=== PATIENT | female | born 1975 | race Hispanic/Latino ===

== ENCOUNTER 2020-06-01 08:56 | Inpatient (IN) | payer SELFPAY ==
[~2020-06-01] VITALS: Ht 157.5 cm; Wt 104.3 kg
[2020-06-01] MEDS ORDERED: SODIUM CHLORIDE 0.9% 1000ML 1,000 ML IV STA (09:17)
[2020-06-01 09:29] LABS: BASOPHILS # (AUTO) 0.1 (0.0-0.1); BASOPHILS % 0.2 % (0.0-1.0); HEMATOCRIT 39.6 % (34.2-44.1); HEMOGLOBIN 13.3 g/dL (12.0-16.0); LYMPHOCYTES # (AUTO) 1.8 (1.0-3.2); LYMPHOCYTES % 8.7 % (18.0-39.1); MEAN CORPUSCULAR HEMOGLOBIN 29.4 pg (28-32); MEAN CORPUSCULAR HGB CONC 33.6 g/dL (31-35); MEAN CORPUSCULAR VOLUME 87.6 fL (81-99); MONOCYTES # (AUTO) 0.8 (0.2-0.8); MONOCYTES % 3.9 % (4.4-11.3); NEUTROPHILS # (AUTO) 17.3 (2.1-6.9); NEUTROPHILS % 85.9 % (38.7-80.0); PLATELET COUNT 262 x10e3/uL (140-360); RED BLOOD COUNT 4.52 x10e6/uL (3.6-5.1); RED CELL DISTRIBUTION WIDTH 13.8 % (11.7-14.4)
[2020-06-01] MEDS ORDERED: ACETAMINOPHEN 325 MG TAB PO NR (09:30)
[2020-06-01 09:33] LABS: INR 1.17; PROTHROMBIN TIME 15.7 seconds (11.9-14.5)
[2020-06-01 09:34] LABS: PARTIAL THROMBOPLASTIN TIME 26.6 seconds (23.8-35.5)
[2020-06-01 09:40] LABS: ALANINE AMINOTRANSFERASE 10 IU/L (0-55); ALBUMIN 3.2 g/dL (3.5-5.0); ALBUMIN/GLOBULIN RATIO 0.6 (0.8-2.0); ALKALINE PHOSPHATASE 49 IU/L (40-150); ANION GAP 18.5 mmol/L (8-16); BLOOD UREA NITROGEN 12 mg/dL (7-26); BUN/CREATININE RATIO 16 (6-25); CALCIUM 8.6 mg/dL (8.4-10.2); CARBON DIOXIDE 25 mmol/L (22-29); CHLORIDE 100 mmol/L (98-107); CREATINE KINASE 25 IU/L (29-168); CREATININE, SERUM 0.75 mg/dL (0.57-1.11); EST GLOMERULAR FILTRATION RATE > 60 ML/MIN (60-); GLUCOSE 126 mg/dL (74-118); MAGNESIUM 2.3 MG/DL (1.3-2.1); POTASSIUM 3.5 mmol/L (3.5-5.1); SODIUM 140 mmol/L (136-145)
[2020-06-01] MEDS ORDERED: ACETAMINOPHEN 325 MG TAB PO PRN (09:45)
[2020-06-01] MEDS: ASCORBIC ACID 500 MG TAB PO SCH (10:05)
[2020-06-01] MEDS: DEXAMETHASONE SOD PHOS 10 MG/1 ML VIAL IV SCH (10:05)
[2020-06-01] MEDS: ENOXAPARIN 30 MG/0.3 ML SYR SC SCH ×2 (10:05→21:27)
[2020-06-01] MEDS: CEFTRIAXONE SOD 1 GM/NS 50 ML 50 ML IV SCH (10:05)
[2020-06-01] MEDS: AZITHROMYCIN 500MG/NS 250 ML 250 ML IV SCH (10:05)
[2020-06-01] MEDS: ZINC SULFATE 220 MG CAP PO SCH (10:39)
[2020-06-01 12:21] VITALS: BP 115/67
[2020-06-01 13:00] VITALS: BP 115/67
[2020-06-01] MEDS ORDERED: ONDANSETRON HCL INJ 2MG/ML 2ML 2 MG/ML VIAL IV PRN (13:30)
[2020-06-01] MEDS ORDERED: POLYETHYLENE GLYCOL 3350 17 GM PACK PO PRN (13:30)
[2020-06-01] MEDS ORDERED: HYDRALAZINE HCL 20 MG/ML VIAL IV PRN (13:30)
[2020-06-01] MEDS ORDERED: REMDESIVIR 200MG/NS 100ML 200 MG in SODIUM CHLORIDE 0.9% 100 ML 100 ML IV ONE ×4 (14:30)
[2020-06-01] MEDS ORDERED: SODIUM CHLORIDE 0.9% 250ML 250 ML ONE (15:31)
[2020-06-01 16:00] VITALS: BP 118/70
[2020-06-01] MEDS: DOCUSATE SODIUM 100 MG CAP PO SCH (16:17)
[2020-06-01] MEDS: DEXAMETHASONE 4 MG TAB PO SCH (16:17)
[2020-06-01] MEDS: FAMOTIDINE 20 MG TAB PO SCH (16:17)
[2020-06-01] MEDS ORDERED: ENOXAPARIN SOD INJ 40 MG/0.4 ML SYR SC SCH (17:00)
[2020-06-01 20:30] VITALS: BP 108/62
[2020-06-01] MEDS ORDERED: TEMAZEPAM 7.5 MG CAP PO PRN (21:00)
[2020-06-01 21:45] VITALS: BP 108/62
[2020-06-02] VITALS (8 sets, daily range): BP systolic 95–124; BP diastolic 61–72
[2020-06-02 02:28] LABS: CREATINE KINASE 27 IU/L (29-168)
[2020-06-02 06:19] LABS: BASOPHILS % 0.2 % (0.0-1.0); HEMATOCRIT 36.9 % (34.2-44.1); HEMOGLOBIN 12.1 g/dL (12.0-16.0); LYMPHOCYTES # (AUTO) 1.8 (1.0-3.2); LYMPHOCYTES % 11.9 % (18.0-39.1); MEAN CORPUSCULAR HEMOGLOBIN 29.2 pg (28-32); MEAN CORPUSCULAR HGB CONC 32.8 g/dL (31-35); MEAN CORPUSCULAR VOLUME 88.9 fL (81-99); MONOCYTES # (AUTO) 0.6 (0.2-0.8); MONOCYTES % 3.9 % (4.4-11.3); NEUTROPHILS # (AUTO) 12.4 (2.1-6.9); NEUTROPHILS % 81.1 % (38.7-80.0); PLATELET COUNT 328 x10e3/uL (140-360); RED BLOOD COUNT 4.15 x10e6/uL (3.6-5.1); RED CELL DISTRIBUTION WIDTH 13.7 % (11.7-14.4)
[2020-06-02 06:40] LABS: MAGNESIUM 2.6 MG/DL (1.3-2.1); PHOSPHORUS 3.1 MG/DL (2.3-4.7)
[2020-06-02 07:00] LABS: THYROID STIMULATING HORMONE 3.721 uIU/mL (0.350-4.940)
[2020-06-02 07:22] LABS: ALANINE AMINOTRANSFERASE 10 IU/L (0-55); ALBUMIN 2.7 g/dL (3.5-5.0); ALBUMIN/GLOBULIN RATIO 0.6 (0.8-2.0); ALKALINE PHOSPHATASE 54 IU/L (40-150); ANION GAP 18.5 mmol/L (8-16); BLOOD UREA NITROGEN 16 mg/dL (7-26); BUN/CREATININE RATIO 24 (6-25); CALCIUM 8.2 mg/dL (8.4-10.2); CARBON DIOXIDE 24 mmol/L (22-29); CHLORIDE 103 mmol/L (98-107); CREATININE, SERUM 0.68 mg/dL (0.57-1.11); EST GLOMERULAR FILTRATION RATE > 60 ML/MIN (60-); GLUCOSE 124 mg/dL (74-118); POTASSIUM 3.5 mmol/L (3.5-5.1); SODIUM 142 mmol/L (136-145)
[2020-06-02 07:34] LABS: CREATINE KINASE 24 IU/L (29-168)
[2020-06-02] MEDS: FAMOTIDINE 20 MG TAB PO SCH ×2 (08:10→17:03)
[2020-06-02] MEDS: DOCUSATE SODIUM 100 MG CAP PO SCH ×2 (08:10→17:04)
[2020-06-02] MEDS: ASCORBIC ACID 500 MG TAB PO SCH ×2 (08:25→17:04)
[2020-06-02] MEDS: CEFTRIAXONE SOD 1 GM/NS 50 ML 50 ML IV SCH ×3 (08:25→09:51)
[2020-06-02] MEDS: ENOXAPARIN 30 MG/0.3 ML SYR SC SCH ×2 (08:25→21:03)
[2020-06-02] MEDS: CHOLECALCIFEROL 400 UNIT TAB PO SCH (08:25)
[2020-06-02] MEDS: DEXAMETHASONE 4 MG TAB PO SCH (08:25)
[2020-06-02] MEDS: ZINC SULFATE 220 MG CAP PO SCH (08:25)
[2020-06-02] MEDS: DEXAMETHASONE SOD PHOS 10 MG/1 ML VIAL IV SCH (09:51)
[2020-06-02] MEDS: REMDESIVIR 100MG/NS 100ML 100 MG in SODIUM CHLORIDE 0.9% 100 ML 100 ML IV SCH (15:04)
[2020-06-02] MEDS ORDERED: REMDESIVIR 100MG/NS 100ML 100 MG in SODIUM CHLORIDE 0.9% 100 ML 100 ML IV SCH (17:00)
[2020-06-03] VITALS (7 sets, daily range): BP systolic 93–125; BP diastolic 53–76
[2020-06-03 05:18] LABS: BASOPHILS # (AUTO) 0.1 (0.0-0.1); BASOPHILS % 0.3 % (0.0-1.0); HEMATOCRIT 37.3 % (34.2-44.1); HEMOGLOBIN 12.3 g/dL (12.0-16.0); LYMPHOCYTES # (AUTO) 2.8 (1.0-3.2); LYMPHOCYTES % 16.1 % (18.0-39.1); MEAN CORPUSCULAR HEMOGLOBIN 29.8 pg (28-32); MEAN CORPUSCULAR VOLUME 90.3 fL (81-99); MONOCYTES % 5.9 % (4.4-11.3); NEUTROPHILS # (AUTO) 12.7 (2.1-6.9); NEUTROPHILS % 73.7 % (38.7-80.0); PLATELET COUNT 405 x10e3/uL (140-360); RED BLOOD COUNT 4.13 x10e6/uL (3.6-5.1); RED CELL DISTRIBUTION WIDTH 13.5 % (11.7-14.4)
[2020-06-03 05:56] LABS: ANION GAP 12.4 mmol/L (8-16); BLOOD UREA NITROGEN 20 mg/dL (7-26); BUN/CREATININE RATIO 29 (6-25); CARBON DIOXIDE 26 mmol/L (22-29); CHLORIDE 104 mmol/L (98-107); CREATININE, SERUM 0.69 mg/dL (0.57-1.11); EST GLOMERULAR FILTRATION RATE > 60 ML/MIN (60-); GLUCOSE 93 mg/dL (74-118); POTASSIUM 3.4 mmol/L (3.5-5.1); SODIUM 139 mmol/L (136-145)
[2020-06-03] MEDS ORDERED: POTASSIUM CHLORIDE 20 MEQ TAB CR PO ONE (07:25)
[2020-06-03] MEDS: FAMOTIDINE 20 MG TAB PO SCH ×2 (07:30→17:07)
[2020-06-03] MEDS: AZITHROMYCIN 500MG/NS 250 ML 250 ML IV SCH (09:00)
[2020-06-03] MEDS: ASCORBIC ACID 500 MG TAB PO SCH ×2 (09:42→17:07)
[2020-06-03] MEDS: DEXAMETHASONE 4 MG TAB PO SCH (09:42)
[2020-06-03] MEDS: DOCUSATE SODIUM 100 MG CAP PO SCH ×2 (09:42→17:07)
[2020-06-03] MEDS: CEFTRIAXONE SOD 1 GM/NS 50 ML 50 ML IV SCH (09:42)
[2020-06-03] MEDS: CHOLECALCIFEROL 400 UNIT TAB PO SCH (09:43)
[2020-06-03] MEDS: ZINC SULFATE 220 MG CAP PO SCH (09:43)
[2020-06-03] MEDS: ENOXAPARIN 30 MG/0.3 ML SYR SC SCH ×2 (09:43→20:22)
[2020-06-03] MEDS: REMDESIVIR 100MG/NS 100ML 100 MG in SODIUM CHLORIDE 0.9% 100 ML 100 ML IV SCH (14:59)
[2020-06-04] VITALS (8 sets, daily range): BP systolic 98–127; BP diastolic 51–68
[2020-06-04 03:41] LABS: BASOPHILS # (AUTO) 0.1 (0.0-0.1); BASOPHILS % 0.4 % (0.0-1.0); HEMATOCRIT 37.6 % (34.2-44.1); HEMOGLOBIN 12.3 g/dL (12.0-16.0); LYMPHOCYTES # (AUTO) 2.3 (1.0-3.2); LYMPHOCYTES % 19.1 % (18.0-39.1); MEAN CORPUSCULAR HEMOGLOBIN 29.3 pg (28-32); MEAN CORPUSCULAR HGB CONC 32.7 g/dL (31-35); MEAN CORPUSCULAR VOLUME 89.5 fL (81-99); MONOCYTES # (AUTO) 0.8 (0.2-0.8); MONOCYTES % 6.2 % (4.4-11.3); NEUTROPHILS # (AUTO) 8.2 (2.1-6.9); PLATELET COUNT 413 x10e3/uL (140-360); RED CELL DISTRIBUTION WIDTH 13.5 % (11.7-14.4)
[2020-06-04 04:00] LABS: ANION GAP 13.1 mmol/L (8-16); BLOOD UREA NITROGEN 16 mg/dL (7-26); BUN/CREATININE RATIO 24 (6-25); CALCIUM 7.9 mg/dL (8.4-10.2); CARBON DIOXIDE 25 mmol/L (22-29); CHLORIDE 106 mmol/L (98-107); CREATININE, SERUM 0.66 mg/dL (0.57-1.11); EST GLOMERULAR FILTRATION RATE > 60 ML/MIN (60-); GLUCOSE 88 mg/dL (74-118); MAGNESIUM 2.4 MG/DL (1.3-2.1); POTASSIUM 4.1 mmol/L (3.5-5.1); SODIUM 140 mmol/L (136-145)
[2020-06-04] MEDS: FAMOTIDINE 20 MG TAB PO SCH ×2 (08:30→16:45)
[2020-06-04] MEDS: ENOXAPARIN 30 MG/0.3 ML SYR SC SCH ×2 (08:58→21:21)
[2020-06-04] MEDS: DOCUSATE SODIUM 100 MG CAP PO SCH ×2 (08:58→16:45)
[2020-06-04] MEDS: DEXAMETHASONE 4 MG TAB PO SCH (08:58)
[2020-06-04] MEDS: CEFTRIAXONE SOD 1 GM/NS 50 ML 50 ML IV SCH (08:58)
[2020-06-04] MEDS: ASCORBIC ACID 500 MG TAB PO SCH ×2 (08:58→16:45)
[2020-06-04] MEDS: CHOLECALCIFEROL 400 UNIT TAB PO SCH (08:58)
[2020-06-04] MEDS: ZINC SULFATE 220 MG CAP PO SCH (08:58)
[2020-06-04] MEDS: AZITHROMYCIN 500MG/NS 250 ML 250 ML IV SCH (09:47)
[2020-06-04] MEDS: REMDESIVIR 100MG/NS 100ML 100 MG in SODIUM CHLORIDE 0.9% 100 ML 100 ML IV SCH (14:09)
[2020-06-05 00:19] VITALS: BP 97/56
[2020-06-05 04:00] VITALS: BP 113/66
[2020-06-05 04:45] LABS: BASOPHILS # (AUTO) 0.1 (0.0-0.1); BASOPHILS % 0.4 % (0.0-1.0); EOSINOPHILS % 0.1 % (0.0-6.0); HEMATOCRIT 37.4 % (34.2-44.1); HEMOGLOBIN 12.3 g/dL (12.0-16.0); LYMPHOCYTES # (AUTO) 3.1 (1.0-3.2); LYMPHOCYTES % 22.4 % (18.0-39.1); MEAN CORPUSCULAR HEMOGLOBIN 29.6 pg (28-32); MEAN CORPUSCULAR HGB CONC 32.9 g/dL (31-35); MEAN CORPUSCULAR VOLUME 90.1 fL (81-99); MONOCYTES # (AUTO) 0.9 (0.2-0.8); MONOCYTES % 6.6 % (4.4-11.3); NEUTROPHILS # (AUTO) 8.3 (2.1-6.9); NEUTROPHILS % 60.4 % (38.7-80.0); PLATELET COUNT 431 x10e3/uL (140-360); RED BLOOD COUNT 4.15 x10e6/uL (3.6-5.1); RED CELL DISTRIBUTION WIDTH 13.2 % (11.7-14.4)
[2020-06-05 05:08] LABS: ALANINE AMINOTRANSFERASE 12 IU/L (0-55); ALBUMIN 2.7 g/dL (3.5-5.0); ALBUMIN/GLOBULIN RATIO 0.8 (0.8-2.0); ALKALINE PHOSPHATASE 37 IU/L (40-150); BLOOD UREA NITROGEN 14 mg/dL (7-26); BUN/CREATININE RATIO 22 (6-25); CARBON DIOXIDE 25 mmol/L (22-29); CHLORIDE 105 mmol/L (98-107); CREATININE, SERUM 0.64 mg/dL (0.57-1.11); EST GLOMERULAR FILTRATION RATE > 60 ML/MIN (60-); GLUCOSE 83 mg/dL (74-118); SODIUM 140 mmol/L (136-145)
[2020-06-05 07:41] LABS: LYMPHOCYTES % (MANUAL) 14 % (19-48); METAMYELOCYTES % (MANUAL) 4 % (0-0); MYELOCYTES % (MANUAL) 2 % (0-0); NEUTROPHILS % (MANUAL) 72 % (40-74); PROMYELOCYTES % (MANUAL) 1 % (0-0)
[2020-06-05 07:42] LABS: ANISOCYTOSIS SLIG; PLATELET ESTIMATE ADEQUATE; PLATELET MORPHOLOGY COMMENT FEW GIANT; POIKILOCYTOSIS SLIGHT
[2020-06-05 07:44] LABS: RBC MORPHOLOGY COMMENT NORMAL; STOMATOCYTES SLIGHT; TARGET CELLS FEW
[2020-06-05] MEDS: FAMOTIDINE 20 MG TAB PO SCH (08:30)
[2020-06-05] MEDS: CEFTRIAXONE SOD 1 GM/NS 50 ML 50 ML IV SCH (09:00)
[2020-06-05] MEDS: DEXAMETHASONE 4 MG TAB PO SCH (09:00)
[2020-06-05] MEDS: DOCUSATE SODIUM 100 MG CAP PO SCH (09:00)
[2020-06-05] MEDS: ZINC SULFATE 220 MG CAP PO SCH (09:00)
[2020-06-05] MEDS: ASCORBIC ACID 500 MG TAB PO SCH (09:00)
[2020-06-05] MEDS: ENOXAPARIN 30 MG/0.3 ML SYR SC SCH (09:00)
[2020-06-05] MEDS: CHOLECALCIFEROL 400 UNIT TAB PO SCH (09:00)
[2020-06-05 09:22] VITALS: BP 104/53
[2020-06-05] MEDS: AZITHROMYCIN 500MG/NS 250 ML 250 ML IV SCH (10:00)
[2020-06-05 10:24] VITALS: BP 104/53
[2020-06-05] MEDS ORDERED: ASPIRIN325 MG PO (10:39)
[2020-06-05] MEDS ORDERED: PROVENTIL HFA6.7 GM INH (10:39)
[2020-06-05] MEDS ORDERED: DECADRON4 M1 PO (10:42)
[2020-06-05 12:30] VITALS: BP 97/41
[2020-06-05] MEDS ORDERED: ONDANSETRON HCL 4 MG ORAL DISINTEGRATING TAB PO PRN (13:00)
[2020-06-05] MEDS: REMDESIVIR 100MG/NS 100ML 100 MG in SODIUM CHLORIDE 0.9% 100 ML 100 ML IV SCH (13:41)
== END 2020-06-05 15:18 | disposition home or self-care (01) | DRG 177 ==
LOC: ER 09:09 → ERHOLD 09:36 → IMCU 11:50
PROVIDERS: ADMIT Internal Medicine; ATTEND Internal Medicine
PROC: 8E0ZXY6 Isolation (ICD-10-PCS; principal; 2020-06-01)
PROC: XW033E5 Introduction of Remdesivir Anti-infective into Peripheral Vein, Percutaneous Approach, New Technology Group 5 (ICD-10-PCS; 2020-06-01)
DX: U07.1 COVID-19 (principal); J12.82 Pneumonia due to coronavirus disease 2019; J96.01 Acute respiratory failure with hypoxia; R73.9 Hyperglycemia, unspecified; E87.6 Hypokalemia; E83.42 Hypomagnesemia
CPT/HCPCS: 36415; 71045; 80048; 80053; 82550; 82553; 83036; 83735; 83880; 84100; 84443; 84484; 84702; 85025; 85610; 85730; 87040; 93005; 93306; 99285; J0456; J0696; J1100; J1650; J2405; J7030; J7050; U0002